=== PATIENT | male | born 1935 | race Caucasian/White ===

== ENCOUNTER 2017-10-03 12:36 | Emergency (ER) | payer OTHER ==
[~2017-10-03] VITALS: Ht 167.6 cm; Wt 82.0 kg
[2017-10-03 12:37] VITALS: BP 147/77; PULSE 59; RESP 16; TEMP 98.4; O2SAT 96
[2017-10-03] MEDS ORDERED: IOHEXOL 350 MG/ML 10 ML VIAL (for RAD DIAG) IVCONTRAST ONE (12:37)
[2017-10-03 14:00] LABS: BILIRUBIN, URINE NEG (NEG); BLOOD, URINE NEG (NEG); GLUCOSE,URINE NEG (NEG); KETONE, URINE NEG (NEG); MUCUS URINE FEW /lpf (OCC); NITRITE,URINE NEG (NEG); SQUAMOUS EPITHELIAL CELL URINE <1 /hpf (0-5); URINE COLOR YELLOW (YELLW/STRAW); URINE LEUKOCYTE ESTERASE NEG (NEG)
[2017-10-03 14:01] LABS: AUTOMATED NEUTROPHIL # 5.7 TH/MM3 (1.8-7.7); BASOPHIL # 0.1 TH/MM3 (0-0.2); BASOPHIL % 0.9 % (0.0-2.0); EOSINOPHIL # 0.1 TH/MM3 (0-0.4); EOSINOPHIL % 1.5 % (0.0-4.0); HEMATOCRIT 40.1 % (39.0-51.0); HEMOGLOBIN 13.4 GM/DL (13.0-17.0); LYMPH % 16.2 % (9.0-44.0); LYMPHOCYTE # 1.2 TH/MM3 (1.0-4.8); MEAN CELL VOLUME 91.9 FL (80.0-100.0); MEAN CORPUSCULAR HEMOGLOBIN 30.7 PG (27.0-34.0); MEAN CORPUSCULAR HGB CONC 33.4 % (32.0-36.0); MEAN PLATELET VOLUME 8.9 FL (7.0-11.0); MONO % 4.4 % (0.0-8.0); MONOCYTE # 0.3 TH/MM3 (0-0.9); PLATELET COUNT 255 TH/MM3 (150-450); RED BLOOD COUNT 4.36 MIL/MM3 (4.50-5.90); RED CELL DISTRIBUTION WIDTH 14.2 % (11.6-17.2); WHITE BLOOD COUNT 7.4 TH/MM3 (4.0-11.0)
[2017-10-03 14:11] LABS: ALBUMIN 3.8 GM/DL (3.4-5.0); AST (GOT) 30 U/L (15-37); BICARBONATE 26.3 MEQ/L (21.0-32.0); BLOOD UREA NITROGEN 23 MG/DL (7-18); CALCIUM 9.1 MG/DL (8.5-10.1); CHLORIDE 108 MEQ/L (98-107); GLOMERULAR FILTRATION RATE 58 ML/MIN (>89); GLUCOSE,RANDOM 99 MG/DL (74-106); SODIUM (NA) 139 MEQ/L (136-145)
[2017-10-03 14:12] LABS: ALT (GPT) 33 U/L (12-78)
[2017-10-03 14:14] LABS: ALKALINE PHOSPHATASE 68 U/L (45-117); TOTAL BILIRUBIN ADULT 0.4 MG/DL (0.2-1.0); TOTAL PROTEIN 7.5 GM/DL (6.4-8.2)
[2017-10-03 16:31] VITALS: RESP 18; O2SAT 98
[2017-10-03] MEDS ORDERED: TERA2CAP3 PO (16:40)
[2017-10-03] MEDS ORDERED: LEVO137T2 PO (16:40)
[2017-10-03] MEDS ORDERED: CIPROFLOXACIN 400 MG PREMIX 200 ML IV ONE (17:15)
[2017-10-03] MEDS ORDERED: metroNIDAZOLE 500 MG INJ 100 ML IV ONE (17:15)
--- NOTE | 2017-10-03 18:11 | RADRPT ---
EXAM DATE/TIME: 10/03/2017 16:46 [place] COMPARISON: No previous studies available for comparison. INDICATIONS : Patient complains of left lower abdomen pain for two weeks. IV CONTRAST: 96 cc Omnipaque 350 (iohexol) IV ORAL CONTRAST: No oral contrast ingested. RADIATION DOSE: 7.84 CTDIvol (mGy) MEDICAL HISTORY : None SURGICAL HISTORY : None. ENCOUNTER: Initial ACUITY: 2 weeks PAIN SCALE: 8/10 LOCATION: Left lower quadrant TECHNIQUE: Volumetric scanning of the abdomen and pelvis was performed. Using automated exposure control and ad justment of the mA and/or kV according to patient size, radiation dose was kept as low as reasonably achievable to obtain optimal diagnostic quality images. DICOM format image data is available electro nically for review and comparison. FINDINGS: LOWER LUNGS: The visualized lower lungs are clear. Partially imaged probable lipoma in the right anterior inferior hemithorax. LIVER: Homogeneous density without lesion. There is no dilation of the biliary tree. Small gallstone in the gallbladder neck the gallbladder is otherwise unremarkable by CT. SPLEEN: Normal size without lesion. PANCREAS: Within normal limits. KIDNEYS: 2.4 cm cyst in the superior pole of the right kidney. Subcentimeter cystic lesion in the inferior elvin e of the left kidney which is too small to fully characterize. Kidneys are otherwise symmetrical in s ize without evidence for radiopaque renal calculi or hydronephrosis. ADRENAL GLANDS: Within normal limits. VASCULAR: There is no aortic aneurysm. BOWEL/MESENTERY: There is moderate sigmoid diverticulosis and scattered descending colonic diverticula. Mild inflammat ory change involving the proximal sigmoid. No abscess or perforation. Remainder of the bowel appears unremarkable. ABDOMINAL WALL: Within normal limits. RETROPERITONEUM: There is no lymphadenopathy. BLADDER: No wall thickening or mass. REPRODUCTIVE: Prostate is nonspecifically enlarged. INGUINAL: Small fat-containing right inguinal hernia. 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 CONCLUSION: 1. Moderate sigmoid and scattered colonic diverticulosis with suspected diverticulitis in the proxima l sigmoid colon. No perforation or abscess at this time. 2. Additional ancillary findings, as above. Omar Vásquez MD on October 03, 2017 at 18:05 Board Certified Radiologist. This report was verified electronically.
--- NOTE | 2017-10-03 18:36 | PD ---
HPI Chief Complaint: GI Complaint Time Seen by Provider: 15:43 Travel History International Travel<30 days: No Contact w/Intl Traveler<30days: No Traveled to known affect area: No History of Present Illness HPI 81-year-old male that presents to the ED for evaluation of left lower quadrant abdominal pain. Patient has had this for about 2 weeks now. Per patient he went to the [place] today and they told to come here. He states that he has a history of diverticulitis in the past and states that it feels somewhat similar but per patient ever concerned that he would have a perforation or abscess is and symptoms continue. She denies any bowel movement or urinary issues. No nausea or vomiting. No chest pain or shortness of breath. Patient is 4 out of 10. No allergies to medication. Has not seen anybody for this other than the [place]. No bleeding or dark stools. Takes no medications for this. PFSH Past Medical History Genitourinary: Yes (BPH) Hypertension: Yes Thyroid Disease: Yes (hypo) Social History Alcohol Use: Yes (on occasion) Tobacco Use: No Substance Use: No Allergies-Medications (Allergen,Severity, Reaction): Coded Allergies: No Known Allergies (Unverified , 10/03/17) Reported Meds & Prescriptions Reported Meds & Active Scripts Active Reported Terazosin (Terazosin HCl) 2 Mg Cap 2 Mg PO HS Levothyroxine (Levothyroxine Sodium) 137 Mcg Tab 137 Mcg PO DAILY Review of Systems Except as stated in HPI: all other systems reviewed are Neg Physical Exam Narrative GENERAL: SKIN: Warm and dry. HEAD: Atraumatic. Normocephalic. EYES: Pupils equal and round. No scleral icterus. No injection or drainage. ENT: No nasal bleeding or discharge. Mucous membranes pink and moist. Tongue is midline. No uvula deviation NECK: Trachea midline. No JVD. CARDIOVASCULAR: Regular rate and rhythm. RESPIRATORY: No accessory muscle use. Clear to auscultation. Breath sounds equal bilaterally. GASTROINTESTINAL: Abdomen soft, tender to palpation on the left lower quadrant, nondistended. Hepatic and splenic margins not palpable. MUSCULOSKELETAL: Extremities without clubbing, cyanosis, or edema. No obvious deformities. Full range of motion of the upper and lower extremities bilaterally. 2+ pulses bilaterally. NEUROLOGICAL: Awake and alert. No obvious cranial nerve deficits. Motor grossly within normal limits. Five out of 5 muscle strength in the arms and legs. Normal speech. PSYCHIATRIC: Appropriate mood and affect; insight and judgment normal. Data Data Last Documented VS Vital Signs Date Time Temp Pulse Resp B/P (MAP) Pulse Ox O2 Delivery O2 Flow Rate FiO2 10/03/17 16:31 18 98 Room Air 10/03/17 12:37 98.4 59 Orders Orders Complete Blood Count With Diff (10/03/17 13:07) Comprehensive Metabolic Panel (10/03/17 13:07) Urinalysis - C+S If Indicated (10/03/17 13:07) Iv Access Insert/Monitor (10/03/17 13:07) Oxygen Administration (10/03/17 13:07) Oximetry (10/03/17 13:07) Ct Abd/Pel W Iv Contrast(Rout) (10/03/17 15:49) Iohexol 350 Inj (Omnipaque 350 Inj) (10/03/17 12:37) Ciprofloxacin 400 Mg Premix (Cipro 400 M (10/03/17 17:15) Metronidazole 500 Mg Inj (Flagyl 500 Mg (10/03/17 17:15) Ed Discharge Order (10/03/17 18:31) Labs Laboratory Tests Test 10/03/17 13:11 10/03/17 13:15 White Blood Count 7.4 TH/MM3 Red Blood Count 4.36 MIL/MM3 Hemoglobin 13.4 GM/DL Hematocrit 40.1 % Mean Corpuscular Volume 91.9 FL Mean Corpuscular Hemoglobin 30.7 PG Mean Corpuscular Hemoglobin Concent 33.4 % Red Cell Distribution Width 14.2 % Platelet Count 255 TH/MM3 Mean Platelet Volume 8.9 FL Neutrophils (%) (Auto) 77.0 % Lymphocytes (%) (Auto) 16.2 % Monocytes (%) (Auto) 4.4 % Eosinophils (%) (Auto) 1.5 % Basophils (%) (Auto) 0.9 % Neutrophils # (Auto) 5.7 TH/MM3 Lymphocytes # (Auto) 1.2 TH/MM3 Monocytes # (Auto) 0.3 TH/MM3 Eosinophils # (Auto) 0.1 TH/MM3 Basophils # (Auto) 0.1 TH/MM3 CBC Comment DIFF FINAL Differential Comment Blood Urea Nitrogen 23 MG/DL Creatinine 1.20 MG/DL Random Glucose 99 MG/DL Total Protein 7.5 GM/DL Albumin 3.8 GM/DL Calcium Level 9.1 MG/DL Alkaline Phosphatase 68 U/L Aspartate Amino Transf (AST/SGOT) 30 U/L Alanine Aminotransferase (ALT/SGPT) 33 U/L Total Bilirubin 0.4 MG/DL Sodium Level 139 MEQ/L Potassium Level 4.3 MEQ/L Chloride Level 108 MEQ/L Carbon Dioxide Level 26.3 MEQ/L Anion Gap 5 MEQ/L Estimat Glomerular Filtration Rate 58 ML/MIN Urine Color YELLOW Urine Turbidity CLEAR Urine pH 5.0 Urine Specific [place] 1.018 Urine Protein NEG mg/dL Urine Glucose (UA) NEG mg/dL Urine Ketones NEG mg/dL Urine Occult Blood NEG Urine Nitrite NEG Urine Bilirubin NEG Urine Urobilinogen LESS THAN 2.0 MG/DL Urine Leukocyte Esterase NEG Urine RBC LESS THAN 1 /hpf Urine Squamous Epithelial Cells <1 /hpf Urine Mucus FEW /lpf Microscopic Urinalysis Comment CULT NOT INDICATED MDM Medical Decision Making Medical Screen Exam Complete: Yes Emergency Medical Condition: Yes Medical Record Reviewed: Yes Interpretation(s) CBC & BMP Diagram 10/03/17 13:11 Total Protein 7.5, Albumin 3.8, Calcium Level 9.1, Alkaline Phosphatase 68, Aspartate Amino Transf (AST/SGOT) 30, Alanine Aminotransferase (ALT/SGPT) 33, Total Bilirubin 0.4 UA negative Last Impressions Abdomen/Pelvis CT 10/03/17 1549 Signed Impressions: Service Date/Time: Friday, October 03, 2017 16:46 - CONCLUSION: 1. Moderate sigmoid and scattered colonic diverticulosis with suspected diverticulitis in the proximal sigmoid colon. No perforation or abscess at this time. 2. Additional ancillary findings, as above. Omar Vásquez MD Differential Diagnosis Diverticulitis versus colitis versus acute abdomen versus abscess versus perforated bowel Narrative Course 81-year-old male that presents to the ED for evaluation of Left lower quadrant abdominal pain. Patient was properly examined and was found to have signs and symptoms consistent with concerning for diverticulitis. Labs and imaging were ordered. Labs and imaging were possible diverticulitis. No sign of abscess. Patient was reassured. Patient was given IV dose of Flagyl and Cipro. Given prescriptions for this. Given prescription for Lortab for pain. Told to follow with PCP. See ED worsening symptoms. Diagnosis Primary Impression: Diverticulitis large intestine Qualified Codes: K57.32 - Diverticulitis of large intestine without perforation or abscess without bleeding Patient Instructions: General Instructions Additional Instructions: Follow-up with PCP. Take medications as prescribed. See ED worsening symptoms. Med/Other Pt SpecificInfo: Prescription(s) given Disposition: 01 DISCHARGE HOME Condition: Stable Олег Shah Oct 03, 2017 18:36
[2017-10-03] MEDS ORDERED: METR-1 PO (18:38)
[2017-10-03] MEDS ORDERED: HYDR-3516 PO (18:38)
[2017-10-03] MEDS ORDERED: CIPR-9 PO (18:38)
== END 2017-10-03 19:17 | disposition home or self-care (01) ==
LOC: NEPE 12:36
DX: K57.32 Diverticulitis of large intestine without perforation or abscess without bleeding (principal); I10 Essential (primary) hypertension; E03.9 Hypothyroidism, unspecified; N40.0 Benign prostatic hyperplasia without lower urinary tract symptoms; Z79.899 Other long term (current) drug therapy
CPT/HCPCS: 74177; 80053; 81001; 85025; 96374; 96375; 99284; J0744; Q9967